=== PATIENT | female | born 1990 | race Caucasian/White ===

== ENCOUNTER 2018-01-22 09:17 | Inpatient (IN) | payer OTHER ==
[2018-01-22 09:41] VITALS: BMI 25.7
[2018-01-22] MEDS ORDERED: Betamet Acet/Betamet Na Ph 30 MG/5 ML VIAL ONE (10:29)
[2018-01-22] MEDS ORDERED: Ondansetron HCl/PF 4 MG/2 ML Vial IVP PRN (10:44)
[2018-01-22] MEDS ORDERED: Carboprost 250 MCG/ML AMP IM PRN (10:44)
[2018-01-22] MEDS ORDERED: NS / Oxytocin 40 units/1000ml 1,000 ML IV PRN (10:44)
[2018-01-22] MEDS ORDERED: Misoprostol 200 MCG TAB PR PRN (10:44)
[2018-01-22] MEDS ORDERED: Methylergonovine 0.2 MG/ML VIAL IM PRN (10:44)
[2018-01-22] MEDS ORDERED: Promethazine HCl 25 MG/ML VIAL IM PRN (10:44)
[2018-01-22] MEDS ORDERED: Lidocaine 1% (PF) 30 ML VIAL SC PRN (10:44)
[2018-01-22] MEDS ORDERED: Acetaminophen 500 MG TAB PO PRN (10:44)
[2018-01-22] MEDS ORDERED: Docusate 100 MG CAP PO PRN (10:44)
[2018-01-22] MEDS ORDERED: Ibuprofen 800 MG TAB PO PRN (10:44)
[2018-01-22] MEDS ORDERED: Penicillin G Potassium 5 MILL.UNITS in Sodium Chloride 0.9% 100 ML IVPB SCH (10:45)
[2018-01-22] MEDS ORDERED: Lactated Ringer's 1,000 ML IV SCH ×2 (10:45)
[2018-01-22] MEDS ORDERED: Betamet Acet/Betamet Na Ph 30 MG/5 ML VIAL IM SCH (10:45)
[2018-01-22] MEDS ORDERED: Penicillin G Potassium 5 MILL.UNITS VIAL ONE (10:47)
--- NOTE | 2018-01-22 10:52 | PDOC.FPROB ---
FMR OB H&P: HPI - History of Present Illness Chief Complaint: vaginal bleeding History of Present Illness: 27 yo with vaginal bleeding that started this morning and occasional contractions that started yesterday afternoon. PNC performed in [facility]. States she has history of HSV with most recent outbreak 4-6 weeks ago that has completely resolved. States her lesions usually occur in the perianal region. Has not been taking PPx but was going to start at 35 weeks. Primary Care Physician: OOT FMR OB H&P: Current - Care : 1 Para: 0 Gestational age: 33.4 wk Due date: 03/08/18 Dating Criteria: Unknown Total weight gain: Unknown - OB Labs Blood type: unknown RH: unknown Antibody Screen: unknown HIV: unknown RPR: unknown HepBsAg: unknown Quad screen: unknown Gonorrhea: unknown Chlamydia: unknown 1 hour gtt: Unknown GBS: unknown - First Trimester Ultrasound First trimester: No records available - Anatomy Survey Anatomy survey: no records available FMR OB H&P: History - Past Medical History PMH: HSV and HPV with abnormal Pap, colpo, s/p LEEP with follow up PAP WNL. Anxiety and depression- off medication - OB History OB History: with unremarkable Hx per patient. - CROCHETER History CROCHETER History: LEEP with normal PAP post LEEP. - Surgical History Sx History: LEEP, dental surgery - Social History Social History: Denies alcohol, tobacco, or illicit drug use. - Family History Family History: Non-contributory FMR OB H&P: Medications - Current Home Medications: Medication Instructions Recorded Confirmed Type Docusate Calcium [Surfak] 240 mg PO PRN PRN 01/22/18 01/22/18 History Vit Calc,Iron,Folic 1 each PO DAILY 01/22/18 01/22/18 History [ Vitamins] Allergies/Adverse Reactions: Allergies Allergy/AdvReac Type Severity Reaction Status Date / Time No Known Allergies Allergy Unverified 01/22/18 09:43 FMR OB H&P: ROS - Review of Systems General: denies: fever/chills, weight/appetite/sleep changes Eyes: denies: eye pain, vision changes ENT: denies: nasal congestion, rhinorrhea, ringing in ears Cardiovascular: denies: chest pain, palpitation Respiratory: denies: cough, congestion Gastrointestinal: denies: abdominal pain, constipation Genitourinary (Female): reports: vaginal bleeding. denies: dysuria, vaginal discharge, vaginal mass/sore Musculoskeletal: denies: pain, stiffness Neurologic: denies: numbness, syncope Integumentary: denies: itching, rash Breast: denies: lumps, bumps Endocrine: denies: cold intolerance, heat intolerance Hematologic/Lymphatic: denies: prolonged or excessive bleeding, enlarged lymph nodes Psychological: reports: depression, anxiety FMR OB H&P: Vital Signs - Maternal Vital signs: Vital Signs - First Documented Temp Pulse Resp BP 98.8 F 81 18 114/72 01/22/18 09:39 01/22/18 09:39 01/22/18 09:39 01/22/18 09:39 - Heart Tones Baseline: 140 Variability: moderate Acceleration: present Deceleration: absent Category: category 1 [place] contractions every: 1-5 min FMR OB H&P: Physical Exam - Physical Exam General: NAD, awake, alert and oriented HEENT: normocephalic and atraumatic, no scleral icterus Neck: supple, FROM Heart: RRR, normal S1/S2 General: CTAB, no respiratory distress Abdomen: soft, gravid, non-tender, no masses Musculoskeletal: normal gait and station, FROM in all four extremities, no misalignment/asymmetry Skin: no rash, good tugor Lymphatic: no unusual bruising or bleeding, no purpura Psychiatric: intact recent and remote memory, good judgement and insight, normal mood and affect - Pelvic Exam Vulva: normal hair distribution, appropriate carmelina stage, no masses, no lesions , no discharge, normal rugae Deviation from normal: clots noted at introitus Cervix: no masses, no lesions SVE: /-1 Membranes: intact Presentation: vertex confirmed by POC US Estimated Weight: 5 lbs FMR OB H&P: Results - Labs Lab results: Pending - Imaging Imaging: Pending FMR OB H&P: A/P - Problem List (1) labor in third trimester Current Visit: Yes Status: Acute Code(s): O60.03 - LABOR WITHOUT DELIVERY, THIRD TRIMESTER Qualifiers: Fetus number: single or unspecified fetus (2) Herpes simplex Current Visit: Yes Status: Acute Code(s): B00.9 - HERPESVIRAL INFECTION, UNSPECIFIED Comment: History of HSV. 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 Labor- Will admit to L&D. Collect type and screen, HIV, RPR, Hep B, rubella, GBS, GC/Chlamydia, and VP3. Stat OB US for biometry ordered. Will administer betamethasone and start PCN PPx. Tocolytics not indicated due to 6 cm dilation. Will consult Neonatology to discuss care with parents. LR Bolus followed by LR at 125 mL/hr. 2. Hx HSV- No active lesions seen on speculum exam. Most recent outbreak 4-6 weeks ago but appears to be resolved. 3. Hx HSV s/p LEEP- normal appearing cervix on exam. Discussion: Date/Time: 01/22/18 1049 This H&P was discussed with Dr. Warren who agree with the above documentation and plan.
--- NOTE | 2018-01-22 11:03 | PDOC.EVN ---
Event Note - Event Note Event Note: JAZLYN Faculty: @ 1105: H&P dictated for admission. DX: PTL at 33 weeks 5 days
--- NOTE | 2018-01-22 11:25 | PDOC.EVN ---
Event Note - Event Note Event Note: EFW by sono per mechanical sound technician: 1918 grams, normal DAO, cephalic. I reaffirmed with the patient that no SXS of HSV are present.
--- NOTE | 2018-01-22 11:26 | HP ---
DATE OF EVALUATION: 01/22/2018 TIME OF EVALUATION: 10:35 until 10:55. LOCATION: Labor and Delivery, originally in bed 9 now moved to bed In brief, this is a patient who had care at an out of town location ([place]) who was vis iting family here in town when she started having vaginal bleeding and increased contractions. HISTORY OF PRESENT ILLNESS: In brief, this is a 24-year-old G1, P0 at 33 weeks and 5 days with EDC o f 03/08 putting her again at 33 weeks and 5 days. She denies any other issues. She has a h istory of HPV and had a LEEP procedure in the past with normal followup Pap smears. She also has a h istory of herpes simplex virus with the last outbreak about 4-6 weeks ago, but no current evidence of infection now. She is not on suppression. She states that she began having irregular contractions earlier today and some bloody show concerning for active labor. She denies rupture of membranes, vag inal bleeding, vaginal burning or bulbar lesions. Dr. Cade Nassar with Family Medicine program was a first to evaluate the patient and I have since then followed his examination, I have interviewed the patient, I have reviewed the plan. I have spoken to the patient and her regarding this plan of care. REVIEW OF SYSTEMS: Complete review of systems was checked and is otherwise negative unless specified in the HPI. It is important to note that there are no current symptoms of HSV at this time. PAST MEDICAL HISTORY: Otherwise, negative. PATHOGEN HISTORY: Significant for having a LEEP in the past. OB HISTORY: She is a G1, P0. SURGICAL HISTORY: LEEP and oral surgery. MEDICATIONS: None. ALLERGIES: None. Bedside ultrasound to evaluate for bleeding revealed a vertex presentation, anterior placenta with no evidence of previa. PHYSICAL EXAMINATION: VITAL SIGNS: Stable and she is afebrile. ABDOMEN: Soft and nontender, but moderate with some contractions when they occur. Cervical exam is about 5-6 cm dilated, about 80% effaced, -1 station. No evidence of ruptured membranes. On external monitor, heart tones were in the 150s and category 1. Contractions about every 1-5 minutes on tocodynamometer. ASSESSMENT: This is a patient who is a primigravida at 24 weeks with a history of herpes simplex vir us at 33 weeks and 5 days by stated LMP/EDC who is having care at an outside facility. She is having labor. PLAN: 1. I have discussed with the patient steroids as she is under 36 weeks and 6 days. 2. We will not administer tocolytics as she is nearing the active phase of labor already. 3. We will continue with IV fluids and hydration and sedation. 4. GBS culture is requested and we will begin penicillin until GBS returns or until the patient deli vers if that happens first. 5. I have requested gonorrhea and chlamydia PCR per routine. 6. I have ordered type and Rh, HIV, RPR and hepatitis B surface antigen as we do for all ad mission. 7. I have ordered an ultrasound for estimated weight. 8. I have called in NICU and I have spoken to the nursery team about the patient and her eminent pre term . I have requested that they come and talk to her. I have also put the consult in the EMR . 9. We will await delivery. 10. I have discussed with the patient that if it is possible that she has some latency until she del marko and we will gain as much time as we can. I have also discussed with her that I will not give h er tocolytics as she has already had advanced cervical dilation close to 6 cm.
[2018-01-22 11:34] LABS: Hemoglobin 12.2 g/dL (12.0-16.0); Mean Corpuscular HGB CONC 33.6 g/dL (32.0-36.0); Mean Corpuscular Hemoglobin 31.9 pg (27.0-31.0); Mean Corpuscular Volume 95.2 fL (78.0-98.0); Mean Platelet Volume 7.5 fL (7.4-10.4); Platelet Count 295 thou/uL (130-400); RBC Distribution Width 11.3 % (11.5-14.5); Red Blood Cell (RBC) Count 3.82 mill/uL (4.20-5.40); White Blood Cell (WBC) Count 14.2 thou/uL (4.8-10.8)
[2018-01-22 12:16] LABS: Syphilis Antibody Nonreactive (Nonreactive); Syphilis Antibody Index 0.03 S/CO (<1.00 Non-Reactive)
[2018-01-22 12:25] LABS: HBSAg Index 0.14 S/CO (0-0.99); HIV (1/2) Antibody/Antigen Non-Reactive (NonReactive); HIV 1/2 INDEX 0.07 S/CO (<1.00); Hep B Surf Ag Non-Reactive S/CO (NonReactive)
--- NOTE | 2018-01-22 12:31 | PDOC.EVN ---
Event Note - Event Note Event Note: Received Records from PCP. I have personally reviewed the records and found the following pertinent information. - Unremarkable labs including negative quad screen and 1hr GTT of 114. - dated by 7 wk US giving EDC of 03/08/18. - Patient smoked in early first trimester but quit on 06/29/17. 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
[2018-01-22 12:45] LABS: Bilirubin Negative (Negative); Blood, Urine Negative (Negative); Clarity CLEAR (Clear); Glucose, Urine (Dipstick) Negative (Negative); Leukocyte Negative (Negative); Nitrite Negative (Negative); Protein, Urine (Dipstick) Negative (Neg-Trace); Specific Gravity, Urine 1.011 (1.002-1.036); Urobilinogen 0.2 mg/dL (0.2-1.0); pH, Urine 6.5 (5.0-9.0)
[2018-01-22 12:48] LABS: Bacteria/HPF None Seen HPF (None Seen); Hyaline Casts/LPF 0-3 HYALINE CAST LPF (0-3 Hyaline); RBC/HPF 0-3 HPF (0-3); Squamous Epithelial None Seen HPF (0-3); WBC/HPF None Seen HPF (0-3)
[2018-01-22 12:57] LABS: Amphetamine Not Detected (NotDetected); Barbiturates Screen Not Detected (NotDetected); Benzodiazepine Screen Not Detected (NotDetected); Cocaine Metabolite Screen Not Detected (NotDetected); Medtox Control Line Valid? VALID (VALID); Medtox Reader # READER 1; Methadone Not Detected (NotDetected); Methamphetamine Not Detected (NotDetected); Opiate Screen Not Detected (NotDetected); Oxycodone Screen Not Detected (NotDetected); Phencyclidine (PCP) Not Detected (NotDetected); THC/Cannabinoid Screen Not Detected (NotDetected); Tricyclic Screen Not Detected (NotDetected)
[2018-01-22] MEDS ORDERED: Bupivacaine 0.5% 20 ML, fentaNYL Citrate/PF 400 MCG in Sodium Chloride 0.9% 72 ML EPIDURAL SCH (13:00)
[2018-01-22] MEDS ORDERED: DISCONTINUE ALL PREVIOUS NARCOTICS FS SCH (13:00)
[2018-01-22] MEDS ORDERED: Penicillin G 2.5 MILL.units 2.5 MILL.UNITS in Premix Bag 1 BAG IVPB SCH (13:00)
--- NOTE | 2018-01-22 13:34 | ULT ---
OB ULTRASOUND: DATE: 01/22/18. HISTORY: labor. FINDINGS: Multiple transabdominal sonographic images of the pelvis are obtained. There is a single intrauterine gestation in cephalic presentation. Cardiac Doppler demonstrates feta l heart tones with a heart rate of 136 b.p.m. The placenta is located anteriorly without evide nce of placenta previa. There is a normal amount of amniotic fluid with an amniotic fluid index of 1 1.1 cm. The cervix is not visualized due to shadowing from adjacent structures and including head. Measurements: Biparietal diameter 7.88 cm, 31 weeks 4 days Head circumference 29.67 cm, 32 weeks 6 days Abdominal circumference 27.72 cm, 31 weeks 5 days Femur length 6.34 cm, 32 weeks 5 days The estimated gestational age by ultrasound is 32 weeks and 2 days with an LEONEL on 03/17/18. Gestatio nal age by the last menstrual period is 33 weeks and 4 days. The estimated weight by ultrasound is 1918 gm (4 pounds, 4 ounces). There is a suggestion of a 4-chamber heart. The cerebellum is not visualized due to shadowing from f etal head. spine is also not well evaluated on this exam. The bilateral kidneys and urinary b ladder are visualized and demonstrate a normal sonographic appearance. There is a suggestion of a 3- vessel cord. Cord insertion is not visualized related to positioning and gestational age. The stomach is visualized and has a normal sonographic appearance. No definite anomalies are seen. IMPRESSION: 1. Single intrauterine gestation in cephalic presentation with heart tones documented. 2. The estimated gestational age by ultrasound is 32 weeks and 2 days with an estimated date of deli very on 03/17/18. 3. Estimated weight is 1918 gm (4 pounds, 4 ounces). 4. Amniotic fluid index is 11.1 cm. POS: [facility]
--- NOTE | 2018-01-22 13:45 | PDOC.OPDEL ---
OB Operative/Delivery Note Delivery Dr/Surgeon: Shahab Deras/Kelvin Assist: Sarinay by Braeden under my supervision Pre-Delivery Diagnosis: active labor, other ( labor) Procedure/Post Delivery Dx: spontaneous vaginal delivery Weeks gestation: 33 (5 days) Anesthesia: none (Too far dilated for epidural placement) - Findings A - 1 min: 8 - 5 min: 9 - Additional Findings/Plan Placenta delivered: spontaneous (mckay) Repaired Obstetrical Laceration: none Estimated blood loss: 300 EBL --QBL pending Compilations/Other Findings: no nc 3 vc counts correct nicu present for delivery per Geddi, no indication for umbilical gas Post delivery plan: routine recovery
[2018-01-22] MEDS ORDERED: Ibuprofen 800 MG TAB PO SCH (14:45)
[2018-01-22] MEDS ORDERED: Bisacodyl 10 MG SUPP PR PRN (16:12)
[2018-01-22] MEDS ORDERED: Adacel (T-DAP) 0.5 ML VIAL IM ONE (16:12)
[2018-01-22] MEDS ORDERED: Lanolin Ointment 7 GM TUBE TOP PRN (16:12)
[2018-01-22] MEDS ORDERED: diphenhydrAMINE 25 MG CAP PO PRN (16:12)
[2018-01-22] MEDS ORDERED: Milk Of Magnesia 30 ML UDCUP PO PRN (16:12)
[2018-01-22] MEDS ORDERED: NS / Oxytocin 40 units/1000ml 1,000 ML IV SCH (16:12)
[2018-01-22] MEDS: Ibuprofen 800 MG TAB PO SCH ×2 (16:29→22:52)
--- NOTE | 2018-01-22 20:26 | DN-2 ---
DATE OF PROCEDURE: 01/22/2018 RESIDENT: Cade Nassar M.D. ATTENDING PHYSICIAN: Jimbo Warren M.D. PROCEDURE: Spontaneous vaginal delivery. PREOPERATIVE DIAGNOSES: 1. intrauterine in labor. 2. History of FERNANDEZ III, status post LEEP. 3. History of HSV with no active lesions or prodromal syndrome. POSTOPERATIVE DIAGNOSES: 1. intrauterine , delivered. 2. History of FERNANDEZ III, status post LEEP. 3. History of HSV with no active lesions or prodromal syndrome. ANESTHESIA: None. ESTIMATED BLOOD LOSS: 350 mL with QBL pending. INDICATIONS: Ms. Chapa is a 27-year-old, G1, P0, who received Clinic from a provider in [place], [place]. She presented with a chief complaint of cramping and contractions for approximately 18 hours and a 6-hour history of vaginal bleeding. She was found to be in labor and admitted for treatment and observation. PROCEDURE IN DETAIL: Again, Ms. Chapa is a 27-year-old, G1, P0, at 33.4 weeks by 7-week ultrasound. She presented in labor. She received one dose of betamethasone and one dose of penicillin 5 million units approximately 3 hours before delivery. A viable female was delivered over intact perineum at 1331 hours. No nuchal cord was noted. The anterior shoulder and remainder of the body were delivered easily. Delayed cord clamping was utilized. The cord was then cut and clamped and handed to the awaiting resuscitation team. A cord gas segment was obtained as well as cord blood. Placenta was delivered in the Smith presentation at 1334 hours. The fundus was massaged and found to be firm. The vagina and cervix were inspected and found to be free of lacerations. The patient tolerated procedure well and went to the unit after routine recovery and care. FINDINGS: 1. Viable female with Apgars of 8 and 9 at 1 and 5 minutes respectively. 2. Grossly normal intact placenta with three-vessel cord sent to pathology. Dr. Warren was present for the delivery. Dr. Gutierrez and the resuscitation team were present at time of delivery. [facility]
[2018-01-22] MEDS: Docusate Calcium (SURFAK) 240 MG CAP PO SCH (22:53)
--- NOTE | 2018-01-23 00:20 | PDOC.PP ---
Post Progress Note Post Day #: 1 Subjective: Resting, no new concerns PO intake tolerated: yes Flatus: yes Ambulation: yes Vital Signs (12 hours) Temp Pulse Resp BP Pulse Ox 01/22/18 22:51 98.9 F 67 18 102/59 L 01/22/18 19:40 99.0 F 79 18 114/59 L 98 01/22/18 18:15 99.4 F 78 16 114/55 L 100 01/22/18 17:15 99.0 F 75 16 123/65 100 Weight Weight 155 lb - Physical Examination General: NAD Cardiovascular: no m/r/g Respiratory: clear to auscultation bilaterally Abdominal: + bowel sounds, lochia, no distention, appropriately TTP Extremities: negative homans (B) Neurological: no gross focal deficits Psychiatric: A&Ox3, normal affect Result Diagrams: 01/22/18 11:24 Additional Labs: Post Labs Blood Type B POSITIVE 01/22/18 11:11 Hep Bs Antigen Non-Reactive S/CO (NonReactive) 01/22/18 11:11 (1) labor in third trimester Code(s): O60.03 - LABOR WITHOUT DELIVERY, THIRD TRIMESTER Status: Acute Qualifiers: Fetus number: single or unspecified fetus (2) Vaginal delivery Code(s): O80 - ENCOUNTER FOR FULL-TERM UNCOMPLICATED DELIVERY Status: Acute - Assessment/Plan Plan: PPD1 s/p PTB at 33-34 weeks 1. Tmax was 99.4 last PM at 1815...ut NT...will follow 2. baby doing well in nursery 3. Follow temps. Routine PP care for now. Consider [facility] home on PPD2
[2018-01-23] MEDS: Ibuprofen 800 MG TAB PO SCH ×3 (06:38→21:46)
--- NOTE | 2018-01-23 07:11 | PDOC.PP ---
Post Progress Note Post Day #: 1 Subjective: Pumping for baby in NICU. reports cramps when pumping. No other concerns. PO intake tolerated: yes Flatus: yes Ambulation: yes Vital Signs (12 hours) Temp Pulse Resp BP Pulse Ox 01/23/18 04:05 98.6 F 67 18 104/55 L 01/22/18 22:51 98.9 F 67 18 102/59 L 01/22/18 19:40 99.0 F 79 18 114/59 L 98 Weight Weight 70.307 kg - Physical Examination General: NAD Cardiovascular: no m/r/g, RRR Respiratory: clear to auscultation bilaterally, non-labored breathing Abdominal: + bowel sounds, lochia, no distention, appropriately TTP Fundus firm & at: 2 cm above pubic bone Extremities: negative homans (B) Neurological: no gross focal deficits Psychiatric: A&Ox3, normal affect Result Diagrams: 01/22/18 11:24 Additional Labs: Post Labs Blood Type B POSITIVE 01/22/18 11:11 Hep Bs Antigen Non-Reactive S/CO (NonReactive) 01/22/18 11:11 (1) labor in third trimester Code(s): O60.03 - LABOR WITHOUT DELIVERY, THIRD TRIMESTER Status: Acute Qualifiers: Fetus number: single or unspecified fetus (2) Herpes simplex Code(s): B00.9 - HERPESVIRAL INFECTION, UNSPECIFIED Status: Acute Comment: History of HSV. 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 labor, delivered- VSS, expectant management at this time. possible d/ c tomorrow. Will have CM and nursing staff discuss bed and breakfast vs [facility]. 2. Hx HSV- no signs of infection
[2018-01-23] MEDS: Docusate Calcium (SURFAK) 240 MG CAP PO SCH ×2 (09:12→21:46)
[2018-01-23] MEDS: Prenatal Vitamin 1 TAB PO SCH (09:13)
[2018-01-23 22:57] LABS: Chlamydia by PCR Not Detected (NotDetected); GC by PCR Not Detected (NotDetected)
--- NOTE | 2018-01-24 07:10 | PDOC.PP ---
Post Progress Note Post Day #: 2 Subjective: Minimal pain, having difficulty expressing breast milk. Explained plan for d/c. Nursing staff state room is available in the [facility]. Vital Signs (12 hours) Temp Pulse Resp BP 01/23/18 19:43 98.3 F 76 18 113/63 Weight Weight 70.307 kg - Physical Examination General: NAD Cardiovascular: no m/r/g, RRR Respiratory: clear to auscultation bilaterally, non-labored breathing Abdominal: + bowel sounds, no distention, appropriately TTP Fundus firm & at: below pubic symphisis Extremities: negative homans (B) Neurological: no gross focal deficits Psychiatric: A&Ox3, normal affect Result Diagrams: 01/22/18 11:24 Additional Labs: Post Labs Blood Type B POSITIVE 01/22/18 11:11 Hep Bs Antigen Non-Reactive S/CO (NonReactive) 01/22/18 11:11 (1) labor in third trimester Code(s): O60.03 - LABOR WITHOUT DELIVERY, THIRD TRIMESTER Status: Acute Qualifiers: Fetus number: single or unspecified fetus (2) Herpes simplex Code(s): B00.9 - HERPESVIRAL INFECTION, UNSPECIFIED Status: Acute Comment: History of HSV. 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 labor, delivered- VSS, d/c to [facility]. Will need f/u in 2 weeks at PCP. 2. Hx HSV- no signs of infection
[2018-01-24 08:41] VITALS: BP 108/61; TEMP 98
[2018-01-24] MEDS: Ibuprofen 800 MG TAB PO SCH (09:48)
[2018-01-24] MEDS: Prenatal Vitamin 1 TAB PO SCH (09:49)
[2018-01-24] MEDS: Docusate Calcium (SURFAK) 240 MG CAP PO SCH (09:49)
[2018-01-24] MEDS ORDERED: Measles/Mumps/Rubella 10 MCG/0.5 ML VIAL SC ONE (12:00)
== END 2018-01-24 14:00 | disposition home or self-care (01) | DRG 774 ==
LOC: L&D/OP 09:17 → L&D 11:00 → 3SW 16:08
PROVIDERS: ADMIT Obstetrics & Gynecology; ATTEND Obstetrics & Gynecology
PROC: 10E0XZZ Delivery of Products of Conception, External Approach (ICD-10-PCS; principal; 2018-01-22)
DX: O60.14X0 Preterm labor third trimester with preterm delivery third trimester, not applicable or unspecified (principal); O98.52 Other viral diseases complicating childbirth; Z3A.33 33 weeks gestation of pregnancy; Z37.0 Single live birth; B00.9 Herpesviral infection, unspecified; B97.7 Papillomavirus as the cause of diseases classified elsewhere
CPT/HCPCS: 36415; 51701; 76815; 80306; 81001; 85027; 86762; 86780; 86850; 86900; 86901; 87081; 87086; 87340; 87389; 87480; 87491; 87510; 87591; 87660; 88307; 90707; 90715; 99285; J0702; J2001; J2540; J3010; J3490; J7050